=== PATIENT | male | born 1990 | race Caucasian/White ===

== ENCOUNTER → 2021-07-22 13:52 | Outpatient (CLI) | payer OTHER, SELFPAY ==
--- NOTE | 2021-07-22 13:56 | DI.MRI.S_ITS ---
PROCEDURE: MR ANKLE LT WO CON INDICATIONS: POSSIBLE BONE SPUR TECHNIQUE: Noncontrast sagittal T1 spin echo and T2 fast spin echo with fat saturation, axial proton density fast spin echo and T2 fast spin echo with fat saturation, coronal T1 spin echo and T2 fast spin echo with fat saturation through the ankle/hindfoot. COMPARISON: None. FINDINGS: Image quality: Excellent. Bones and joints: Tiny plantar calcaneal enthesophyte is seen. No bone marrow contusions or fractures. No hindfoot coalitions. No osteochondral injuries of the talar dome. No pathologic joint effusions. Medial structures: The posterior tibialis, flexor digitorum longus, and flexor hallucis longus tendons are intact. Small amount of fluid distending posterior tibialis tendon sheath is seen suggestive of low-grade tenosynovitis. The posterior tibial neurovascular bundle appears normal within the tarsal tunnel, without extrinsic mass effect. The deep layer (anterior and posterior tibiotalar ligaments) and superficial layer (tibionavicular, tibiospring, and tibiocalcaneal ligaments) of the deltoid ligament appear normal. The spring ligament components (superomedial calcaneonavicular, medioplantar oblique calcaneonavicular, and inferoplantar longitudinal ligaments) are intact. Lateral structures: The anterior talofibular, calcaneofibular, and posterior talofibular ligaments appear intact. More superiorly, the anterior and posterior tibiofibular ligaments appear intact, as is the intermalleolar ligament. The tibiofibular syndesmosis is normal in width at 2 mm or less. The peroneus longus and brevis tendons demonstrate normal location and morphology. Small amount of fluid distending peroneus tendon sheath is also seen at the level of calcaneocuboid joint. Adjacent bony peroneal tubercle and retrotrochlear prominence are normal in size. The sinus tarsi demonstrates normal fatty signal, without edema, fibrosis, or cyst formation. Visualized sinus tarsi components (cervical ligament, interosseous talocalcaneal ligament, roots of the inferior extensor retinaculum) appear normal. The calcaneonavicular and calcaneocuboid components of the bifurcate ligament appear intact. The dorsal calcaneocuboid ligament appears intact. Anterior structures: The tibialis anterior, extensor hallucis longus, and extensor digitorum longus tendons appear intact. The dorsal talonavicular ligament appears intact. Posterior and plantar structures: Achilles tendon is intact. Thickened medial band of plantar fascia at its plantar calcaneal insertion is seen with mild surrounding edema suggestive of low-grade plantar fasciitis. No abductor digiti quinti muscle atrophy to suggest Kenney neuropathy. IMPRESSION: 1. Tiny plantar calcaneal enthesophyte with thickened medial band of plantar fascia at its calcaneal insertion suggestive of low-grade plantar fasciitis. 2. Finding is suggestive of very low-grade tenosynovitis involving posterior tibialis tendon and peroneus tendons as above. No tendon rupture. 3. Medial and lateral ankle ligaments are intact. 4. No marrow edema. No fracture or dislocation. No osteochondral injuries of talar dome. Dictated by: Hector Santana M.D. on 07/23/2021 at 9:24 Approved by: Hector Santana M.D. on 07/23/2021 at 9:27
== END ==
PROVIDERS: Referring Provider Podiatrist; Visit Provider Podiatrist
DX: M79.672 Pain in left foot (principal); M77.32 Calcaneal spur, left foot; G57.52 Tarsal tunnel syndrome, left lower limb; M72.2 Plantar fascial fibromatosis
CPT/HCPCS: 73721

== ENCOUNTER → 2023-01-08 09:34 | Outpatient (CLI) | payer OTHER, SELFPAY ==
--- NOTE | 2023-01-08 09:35 | DI.ECHO.S_ITS ---
[place] [facility]---------+ [facility] +---------+ : : [address] : : : : [id number] : : : : Phone: [phone]+ Echocardiogram Report + + :Name: HERNAN LIPSCOMB Study Date: 01/08/2023 Height: 71 in : :[facility] ReadingLocation: Weight: 185 lb : : Gender: Male BSA: 2.0 m2 : :: 1990 Age: 32 yrs BP: 136/90 mmHg: :Reason For Study: SHORTNESS OF BREATH : :Ordering Physician: KAREN, : :NANDO Performed By: Kasia Zhu : :Referring: NANDO JONES : + + Interpretation Summary The left ventricle is normal in size and wall thickness. The left ventricular ejection fraction is normal. The ejection fraction is estimated to be 55-60%. The right ventricle is normal in size and function. No significant valvular pathology seen. The IVC is dilated (diameter is greater than 2.1 cm) yet it collapses greater than 50% with a sniff. This suggests a right atrial pressure of 8 mm Hg. Procedure: A two-dimensional transthoracic echocardiogram with color flow and Doppler was performed. The study quality was technically adequate. There is no prior echocardiogram noted for this patient. The patient was in sinus rhythm with heart rates between 65-81 bpm during the exam. Left Ventricle: The left ventricle is normal in size and wall thickness. There is no thrombus. The ejection fraction is estimated to be 55-60%. The left ventricular ejection fraction is normal. There are no focal wall motion abnormalities. Diastolic parameters suggest probable normal left ventricular diastolic function and normal filling pressures. Right Ventricle: The right ventricle is normal in size and function. Atria: The left atrial size is normal. Right atrial size is normal. There is no Doppler evidence for an interatrial shunt. Mitral Valve: The mitral valve is normal in structure and function. There is trace mitral regurgitation. Aortic Valve: The aortic valve is trileaflet. The aortic valve opens well. There is no aortic valve stenosis. No aortic regurgitation is present. Tricuspid Valve: The tricuspid valve is normal in structure and function. There is a trace or physiologic amount of tricuspid regurgitation. Pulmonary artery pressures cannot be estimated because of the lack of a measurable TR jet velocity. Pulmonic Valve: The pulmonic valve is not well seen, but is grossly normal. There is no pulmonic valvular regurgitation. Great Vessels: The aortic root is normal size. The dimensions of the ascending aorta are normal. The IVC is dilated (diameter is greater than 2.1 cm) yet it collapses greater than 50% with a sniff. This suggests a right atrial pressure of 8 mm Hg. Pericardium/ Pleura There is no pericardial effusion. There is no pleural effusion. MMode/2D Measurements & Calculations LVIDd: 5.3 cm LVOT diam: 2.3 cm LVIDs: 3.9 cm Ao root diam: 3.1 cm FS: 26.5 % asc Aorta Diam: 2.8 cm EPSS: 0.86 cm Ao Arch Diam (Prox Trans): 2.6 cm IVSd: 0.72 cm LVPWd: 0.99 cm LV gifford. diameter/BSA (cm/m^2): 2.6 LV sys. diameter/BSA (cm/m^2): 1.9 LA A2 area: 21.7 cm2 RA long axis: 5.1 cm LA A4 area: 19.7 cm2 RA area: 17.8 cm2 LA length (vol): 5.8 cm RA vol: 52.5 ml LA vol: 63.0 ml RA : 25.8 ml/m2 LA vol index: 30.9 ml/m2 IVC diam: 2.4 cm RVD1 (basal): 3.8 cm RVD2 (mid): 3.7 cm TAPSE: 1.9 cm Doppler Measurements & Calculations Ao V2 max: 114.6 cm/sec LVOT Max Sonu: 95.3 cm/sec Ao V2 mean: 82.8 cm/sec LV V1 max P.6 mmHg Ao max P.3 mmHg LV V1 VTI: 19.3 cm Ao mean P.0 mmHg MAY(I,D): 3.4 cm2 Ao V2 VTI: 24.1 cm MAY(V,D): 3.5 cm2 sev ratio: 0.80 MAY indexed to BSA (cm^2/m^2): 1.7 MV E max sonu: 62.6 cm/sec PA V2 max: 83.2 cm/sec MV A max sonu: 45.4 cm/sec PA V2 mean: 60.1 cm/sec MV E/A: 1.4 PA mean P.6 mmHg Med Peak E' Sonu: 11.8 cm/sec PA pr(Accel): 14.8 mmHg E/E' med: 5.3 Lat Peak E' Snou: 15.5 cm/sec E/E' lat: 4.0 E/e' average: 4.7 MV dec time: 0.18 sec SV(OT): 81.7 ml Reading Physician:11:26 AM
== END ==
PROVIDERS: Referring Provider Chiropractor; Visit Provider Chiropractor
DX: R06.02 Shortness of breath (principal); R00.2 Palpitations; S62.351A Nondisplaced fracture of shaft of second metacarpal bone, left hand, initial encounter for closed fracture; S72.302A Unspecified fracture of shaft of left femur, initial encounter for closed fracture; J98.8 Other specified respiratory disorders; Z87.891 Personal history of nicotine dependence
CPT/HCPCS: 93306; 94060

== ENCOUNTER → 2023-01-08 13:23 | Outpatient (CLI) | payer OTHER, SELFPAY | PROVIDERS: Referring Provider Chiropractor; Visit Provider Chiropractor | DX: R06.02 Shortness of breath (principal); Z87.891 Personal history of nicotine dependence; J98.8 Other specified respiratory disorders | CPT/HCPCS: 94060 ==

== ENCOUNTER 2023-02-21 10:36 | Emergency (ER) | payer OTHER, SELFPAY ==
[2023-02-21 10:49] VITALS: BP 136/99; PULSE 85; RESP 15; TEMP 36.6; O2SAT 98; BMI 26.4
[2023-02-21 14:21] VITALS: BP 142/92; PULSE 85; O2SAT 100
[2023-02-21 14:55] VITALS: PULSE 96
--- NOTE | 2023-02-21 15:24 | ED.UPPEXIN ---
HPI - Extremity Injury (Upper) General Chief Complaint: Extremity Injury, Upper Stated Complaint: left shoulder pain Time Seen by Provider: 02/21/23 15:07 Source: patient Mode of arrival: Ambulatory History of Present Illness HPI narrative: 32-year-old male presents for evaluation of left shoulder pain. Patient states that 3 months ago he was playing with his children doing a handstand when he fell, landing on his left shoulder. He is had persistent pain since then. One month ago he was seen at [facility] and underwent x-ray imaging. He was placed in a sling and told to follow up with his primary care physician. Patient states that his primary care appointment is not for another 2 weeks and he still has very significant pain. He is barely able to move his arm due to the severity of his pain. He has been taking Tylenol and Motrin without relief. He has been told that he needs an MRI but because of the delay in his care he does not know what to do anymore and he is here today for evaluation. Related Data Previous Rx's Medication Instructions Recorded hydrocodone 5 mg-acetaminophen 325 1 tab PO Q4-6H PRN pain #14 tabs 02/21/23 mg tablet methocarbamol 750 mg tablet 750 mg PO TID #60 tabs 02/21/23 Allergies Allergy/AdvReac Type Severity Reaction Status Date / Time No Known Drug Allergies Allergy Verified 02/21/23 10:49 Review of Systems Review of Systems Narrative: CONSTITUTIONAL- Denies: fever, chills, fatigue HEENT- Denies: sore throat, nosebleed, vision changes RESPIRATORY- Denies: shortness of breath, cough, wheezing CARDIAC- Denies: chest pain, edema, orthopnea GI- Denies: abdominal pain, nausea, vomiting, constipation, diarrhea - Denies: frequency, dysuria, hematuria, flank pain MSK-reports: Left shoulder pain Denies: extremity pain, extremity swelling SKIN- Denies: rash, itching, burn, swelling NEUROLOGICAL- Denies: headache, numbness, weakness, dizziness PSYCHIATRIC- Denies: anxiety, depression, suicidal ideation, homicidal ideation Patient History Social History Smoking Status: Unknown if ever smoked Smoking Status: Unknown if ever smoked alcohol intake frequency: holidays/special occasions only Substance Use Type: does not use Exam Initial Vital Signs Initial Vital Signs: Vital Signs Temperature 97.8 F 02/21/23 10:49 Pulse Rate 85 02/21/23 10:49 Respiratory Rate 15 02/21/23 10:49 Blood Pressure 136/99 H 02/21/23 10:49 Pulse Oximetry 98 02/21/23 10:49 Oxygen Delivery Method Room Air 02/21/23 10:49 Const: Awake, alert, no acute distress, nontoxic appearing Eyes: PERRL, EOMI, conjunctiva normal ENT: Atraumatic, dentition normal, mucous membranes moist Cardiac: regular rate, regular rhythm RESP: unlabored, clear bilaterally, no wheezing GI: Atraumatic, soft, nontender, nondistended, no rebound, no guarding MSK: Atraumatic, left upper extremity with decreased range of motion due to pain, decreased musculature left biceps. [employer] strength equal bilaterally, sensation equal bilaterally Skin: Warm, Dry, intact, no rashes Neuro: AO x3, CN II-XII grossly intact, moves all extremities Psych: affect normal, mood normal, not suicidal, not homicidal Course Course Course Narrative: Patient presenting for repeat evaluation of shoulder injury and pain. Patient very likely has some level of rotator cuff injury, however he is neurovascularly intact.. There is noticeable decrease in biceps muscle bulk on left arm. Very little utility in repeat x-ray due to duration of symptoms as well as previous negative x-ray. Patient would benefit for MRI but there is no emergent need for MRI through the emergency department. Patient was counseled on the importance of PCP and orthopedic follow up. We will continue short course of pain medications and muscle relaxers until he can see his primary care doctor. Orders Ordered: Discontinued Medications Ketorolac Tromethamine (Ketorolac 30 Mg/Ml Vial) 30 mg IM NOW ONE Stop: 02/21/23 15:24 Last Admin: 02/21/23 15:29 Dose: 30 mg Documented By: RB Methocarbamol (Methocarbamol 500 Mg Tablet) 1,000 mg PO NOW ONE Stop: 02/21/23 15:24 Last Admin: 02/21/23 15:29 Dose: 1,000 mg Documented By: RB Oxycodone HCl (Oxycodone Ir 5 Mg Tablet) 5 mg PO NOW ONE Stop: 02/21/23 15:24 Last Admin: 02/21/23 15:30 Dose: 5 mg Documented By: RB Vital Signs Vital signs: Vital Signs - 8 hr 02/21/23 10:49 02/21/23 14:21 02/21/23 14:55 Temperature 97.8 F Pulse Rate 85 85 Pulse Rate [Left Radial] 96 H Respiratory Rate 15 Blood Pressure 136/99 H 142/92 H Pulse Oximetry 98 100 Oxygen Delivery Method Room Air Room Air Discharge Plan Departure Patient Disposition: Home Clinical Impression: Rotator cuff dysfunction Instructions: DI for Rotator Cuff Injury Prescriptions: New hydrocodone-acetaminophen 5-325 mg tablet 1 tab PO Q4-6H PRN (Reason: pain) Qty: 14 0RF methocarbamol 750 mg tablet 750 mg PO TID Qty: 60 0RF Referrals: ProviderMehnaz [Primary Care Provider] - Stand Alone Forms: Patient Portal/API
[2023-02-21] MEDS: methocarbamoL 500 MG TABLET 1000 MG PO (15:29)
[2023-02-21] MEDS: KETOROLAC 30 MG/ML VIAL IM (15:29)
[2023-02-21] MEDS: OXYCODONE IR 5 MG TABLET PO (15:30)
[2023-02-21 15:38] VITALS: BP 132/86; PULSE 88; RESP 20; TEMP 36.7; O2SAT 98
== END 2023-02-21 16:20 | disposition home or self-care (01) ==
PROVIDERS: Emergency Provider Emergency Medicine
DX: M67.912 Unspecified disorder of synovium and tendon, left shoulder (principal)
CPT/HCPCS: 96372; 99283; J1885